=== PATIENT | male | born 1960 | race Caucasian/White ===

== ENCOUNTER 2022-01-03 23:04 | Emergency (ER) | payer SELFPAY ==
[2022-01-04] MEDS ORDERED: NORFLEX 100 MG100 MG PO (01:55)
[2022-01-04] MEDS ORDERED: PREDNISONE 50 M50 MG PO (01:55)
[2022-01-04] MEDS ORDERED: IBUPROFEN600 MG PO (01:55)
== END 2022-01-04 02:20 | disposition home or self-care (01) ==
LOC: ER1 23:04
DX: M25.552 Pain in left hip (principal); G89.29 Other chronic pain
CPT/HCPCS: 73502; 96372; 99283; J1885; J2270; J2930

== ENCOUNTER 2022-01-08 21:10 | Inpatient (IN) | payer OTHER ==
[~2022-01-08] VITALS: Ht 193 cm; Wt 148.2 kg
[~2022-01-08 21:10] MED LIST: IBUPROFEN600 MG PO; NORFLEX 100 MG100 MG PO; PREDNISONE 50 M50 MG PO
[2022-01-08 22:19] LABS: HEMOGLOBIN 14.8 gm/dl (14.0-17.5); RED BLOOD COUNT 5.02 M/UL (4.20-5.50); WHITE BLOOD COUNT 17.5 K/UL (4.5-11.0)
[2022-01-09 02:10] LABS: HEMOGLOBIN 14.9 gm/dl (14.0-17.5); RED BLOOD COUNT 4.94 M/UL (4.20-5.50); WHITE BLOOD COUNT 11.5 K/UL (4.5-11.0)
[2022-01-09 02:27] LABS: BUN/CREATININE RATIO 42 (0-10)
[2022-01-09 10:27] LABS: CANDIDA ALBICANS Not Detected (Negative); CANDIDA KRUSEI Not Detected (Negative); CANDIDA TROPICALIS Not Detected (Negative); ESCHERICHIA COLI Not Detected (Negative); HAEMOPHILUS INFLUENZAE Not Detected (Negative); KLEBSIELLA OXYTOCA Not Detected (Negative); KLEBSIELLA PNEUMONIAE Not Detected (Negative); KPC-CARBAPENEM-RESISTANCE GENE Not Detected (Negative); PROTEUS Not Detected (Negative); PSEUDOMONAS AERUGINOSA Not Detected (Negative); SERRATIA MARCESANS Not Detected (Negative); STREP AGALACTIAE (GROUP B) Not Detected (Negative); STREP PYOGENES (GROUP A) Not Detected (Negative); STREPTOCOCCUS Not Detected (Negative); vanA/B (VANCOMYCIN RESIST GENE Not Detected (Negative)
[2022-01-09] MEDS ORDERED: ASPIRIN CHEWABL81 MG PO (12:52)
[2022-01-09] MEDS ORDERED: VITAMIN B-121000 MC3 PO (12:52)
[2022-01-09] MEDS ORDERED: COLACE100 MG PO (12:53)
[2022-01-09] MEDS ORDERED: VITAMIN D325 MCG PO (12:53)
[2022-01-09] MEDS ORDERED: PREDNISONE 50 M50 MG PO (12:59)
[2022-01-09 13:09] LABS: STAPHYLOCOCCUS DETECTED (Negative); STAPHYLOCOCCUS AUREUS DETECTED (Negative)
[2022-01-10 04:47] LABS: HEMOGLOBIN 13.1 gm/dl (14.0-17.5); RED BLOOD COUNT 4.39 M/UL (4.20-5.50); WHITE BLOOD COUNT 17.3 K/UL (4.5-11.0)
[2022-01-10 05:12] LABS: BUN/CREATININE RATIO 44 (0-10)
[2022-01-11 00:01] LABS: CANDIDA ALBICANS Not Detected (Negative); CANDIDA KRUSEI Not Detected (Negative); CANDIDA TROPICALIS Not Detected (Negative); ESCHERICHIA COLI Not Detected (Negative); HAEMOPHILUS INFLUENZAE Not Detected (Negative); KLEBSIELLA OXYTOCA Not Detected (Negative); KLEBSIELLA PNEUMONIAE Not Detected (Negative); KPC-CARBAPENEM-RESISTANCE GENE Not Detected (Negative); PROTEUS Not Detected (Negative); PSEUDOMONAS AERUGINOSA Not Detected (Negative); SERRATIA MARCESANS Not Detected (Negative); STREP AGALACTIAE (GROUP B) Not Detected (Negative); STREP PYOGENES (GROUP A) Not Detected (Negative); STREPTOCOCCUS Not Detected (Negative); vanA/B (VANCOMYCIN RESIST GENE Not Detected (Negative)
[2022-01-11 01:53] LABS: STAPHYLOCOCCUS AUREUS DETECTED (Negative)
[2022-01-11 01:54] LABS: STAPHYLOCOCCUS DETECTED (Negative)
[2022-01-12 07:30] LABS: HEMOGLOBIN 13.2 gm/dl (14.0-17.5); RED BLOOD COUNT 4.42 M/UL (4.20-5.50)
[2022-01-12 08:04] LABS: WHITE BLOOD COUNT 24.3 K/UL (4.5-11.0)
[2022-01-12 08:24] LABS: BUN/CREATININE RATIO 36 (0-10)
[2022-01-13 03:07] LABS: HEMOGLOBIN 13.6 gm/dl (14.0-17.5); RED BLOOD COUNT 4.53 M/UL (4.20-5.50); WHITE BLOOD COUNT 28.5 K/UL (4.5-11.0)
[2022-01-13 03:44] LABS: BUN/CREATININE RATIO 33 (0-10)
[2022-01-14 03:34] LABS: HEMOGLOBIN 13.3 gm/dl (14.0-17.5); RED BLOOD COUNT 4.52 M/UL (4.20-5.50); WHITE BLOOD COUNT 23.2 K/UL (4.5-11.0)
[2022-01-14 04:18] LABS: BUN/CREATININE RATIO 33 (0-10)
[2022-01-15 03:16] LABS: HEMOGLOBIN 12.7 gm/dl (14.0-17.5); RED BLOOD COUNT 4.19 M/UL (4.20-5.50); WHITE BLOOD COUNT 20.6 K/UL (4.5-11.0)
[2022-01-15 03:41] LABS: BUN/CREATININE RATIO 34 (0-10)
[2022-01-16 02:38] LABS: HEMOGLOBIN 12.2 gm/dl (14.0-17.5); RED BLOOD COUNT 4.02 M/UL (4.20-5.50)
[2022-01-16 03:05] LABS: BUN/CREATININE RATIO 30 (0-10)
[2022-01-17 03:21] LABS: HEMOGLOBIN 12.8 gm/dl (14.0-17.5); RED BLOOD COUNT 4.23 M/UL (4.20-5.50); WHITE BLOOD COUNT 15.9 K/UL (4.5-11.0)
[2022-01-17 03:39] LABS: BUN/CREATININE RATIO 25 (0-10)
[2022-01-17 15:32] LABS: BUN/CREATININE RATIO 24 (0-10)
[2022-01-18 03:03] LABS: HEMOGLOBIN 12.5 gm/dl (14.0-17.5); RED BLOOD COUNT 4.2 M/UL (4.20-5.50); WHITE BLOOD COUNT 16.7 K/UL (4.5-11.0)
[2022-01-18 03:46] LABS: BUN/CREATININE RATIO 24 (0-10)
[2022-01-19 04:58] LABS: HEMOGLOBIN 11.8 gm/dl (14.0-17.5); RED BLOOD COUNT 3.96 M/UL (4.20-5.50)
[2022-01-19 05:00] LABS: WHITE BLOOD COUNT 12.5 K/UL (4.5-11.0)
[2022-01-19 05:45] LABS: BUN/CREATININE RATIO 29 (0-10)
[2022-01-20 03:07] LABS: BUN/CREATININE RATIO 25 (0-10)
[2022-01-21 04:57] LABS: HEMOGLOBIN 11.6 gm/dl (14.0-17.5); RED BLOOD COUNT 3.89 M/UL (4.20-5.50); WHITE BLOOD COUNT 10.8 K/UL (4.5-11.0)
[2022-01-21 05:57] LABS: BUN/CREATININE RATIO 27 (0-10)
[2022-01-21 09:22] LABS: BUN/CREATININE RATIO 25 (0-10)
[2022-01-21] MEDS ORDERED: TEFLARO600 MG IV (10:36)
[2022-01-21] MEDS ORDERED: GABAPENTIN300 MG PO (10:36)
[2022-01-21] MEDS ORDERED: SODIUM CHLORIDE1 G1 PO (10:36)
[2022-01-21] MEDS ORDERED: COZAAR50 MG PO (10:36)
[2022-01-21] MEDS ORDERED: CHRONULAC20 GM/30 M PO (10:36)
[2022-01-21] MEDS ORDERED: FLOMAX 0.4 MG0.4 MG PO (10:36)
[2022-01-21] MEDS ORDERED: DILAUDID 0.5 MG/0.5 IVP (10:36)
[2022-01-21] MEDS ORDERED: CARVEDILOL12.5 MG PO (10:36)
[2022-01-21] MEDS ORDERED: STIMULANT LAXA1 EACH PO (10:36)
[2022-01-21] MEDS ORDERED: ROXICODONE TAB 55 MG PO (10:36)
[2022-01-21] MEDS ORDERED: ENOXAPARIN40 MG/0.4 SC (10:36)
[2022-01-21] MEDS ORDERED: SYNTHROID50 MCG PO (10:36)
[2022-01-21] MEDS ORDERED: ACETAMINOPHEN325 MG PO (10:36)
[2022-01-21] MEDS ORDERED: NYSTATIN60 GM EXT (10:36)
[2022-01-21] MEDS ORDERED: ALPRAZOLAM0.5 MG PO (10:36)
[2022-01-22 09:14] LABS: COMPLEMENT C3, SERUM 170 mg/dL (82-167); COMPLEMENT C4, SERUM 32 mg/dL (12-38)
[2022-01-24 13:09] LABS: ANTI-DSDNA ANTIBODIES <1 IU/mL (0-9); ANTICHROMATIN ANTIBODIES <0.2 AI (0.0-0.9)
== END 2022-01-21 15:46 | DRG 854 ==
LOC: ER1 21:10 → CDU 01-09 00:44 → M/S 01-09 00:44 → PROG CARE 01-09 18:02 → M/S 01-09 23:43
PROVIDERS: Emergency Medicine; Internal Medicine; Internal Medicine Infectious Disease; Internal Medicine Nephrology; Physician Assistant Medical; ADMIT Family Medicine
PROC: 3E03329 Introduction of Other Anti-infective into Peripheral Vein, Percutaneous Approach (ICD-10-PCS; principal; 2022-01-09)
PROC: B24BZZZ Ultrasonography of Heart with Aorta (ICD-10-PCS; 2022-01-10)
PROC: 0KBP0ZX Excision of Left Hip Muscle, Open Approach, Diagnostic (ICD-10-PCS; 2022-01-11)
DX: A41.02 Sepsis due to Methicillin resistant Staphylococcus aureus (principal); E22.2 Syndrome of inappropriate secretion of antidiuretic hormone; M62.82 Rhabdomyolysis; Z20.822 Contact with and (suspected) exposure to COVID-19; N17.9 Acute kidney failure, unspecified; M00.852 Arthritis due to other bacteria, left hip; L03.116 Cellulitis of left lower limb; N30.00 Acute cystitis without hematuria; M60.852 Other myositis, left thigh; R65.20 Severe sepsis without septic shock; L08.89 Other specified local infections of the skin and subcutaneous tissue; F41.9 Anxiety disorder, unspecified; F32.A Depression, unspecified; E86.9 Volume depletion, unspecified; Z96.698 Presence of other orthopedic joint implants; I08.0 Rheumatic disorders of both mitral and aortic valves; T36.8X5A Adverse effect of other systemic antibiotics, initial encounter; I10 Essential (primary) hypertension; G89.29 Other chronic pain; E16.0 Drug-induced hypoglycemia without coma; E87.6 Hypokalemia; T38.0X5A Adverse effect of glucocorticoids and synthetic analogues, initial encounter; E03.8 Other specified hypothyroidism; E66.01 Morbid (severe) obesity due to excess calories; M16.12 Unilateral primary osteoarthritis, left hip; R21 Rash and other nonspecific skin eruption; Z79.01 Long term (current) use of anticoagulants; Z79.82 Long term (current) use of aspirin; Z80.3 Family history of malignant neoplasm of breast; Z82.61 Family history of arthritis; Z68.30 Body mass index [BMI] 30.0-30.9, adult
CPT/HCPCS: ECHO; 36415; 71045; 73701; 73718; 80048; 80053; 80202; 81001; 82436; 82550; 82553; 82962; 83036; 83605; 83735; 83935; 84100; 84133; 84295; 84300; 84443; 84550; 85025; 85379; 85652; 86038; 86140; 86160; 86225; 87040; 87070; 87077; 87081; 87086; 87150; 87186; 87205; 93005; 93306; 93320; 93971; 96374; 96375; 96376; 97162; 97165; 97530; 97530-GP-CQ; 99285; J0360; J0692; J0696; J1100; J1170; J1200; J1650; J1885; J2001; J2020; J2250; J2270; J2310; J2405; J2704; J2920; J2930; J3010; J3370; J7030; J7040; J7070; Q9967; U0002